=== PATIENT | male | born 1965 | race Caucasian/White ===

== ENCOUNTER 2022-12-05 08:38 | Emergency (ER) | payer MEDICAID ==
[~2022-12-05] VITALS: Ht 170.2 cm; Wt 95.3 kg
[2022-12-05] MEDS ORDERED: ACETAMINOPHEN ES 500 MG TABLET ONE (09:21)
[2022-12-05] MEDS: ACETAMINOPHEN ES 500 MG TABLET PO ONE (09:30)
[2022-12-05] MEDS: CYCLOBENZAPRINE 10 MG TABLET PO ONE (09:30)
[2022-12-05] MEDS ORDERED: CYCLOBENZAPRINE 10 MG TABLET ONE (09:31)
[2022-12-05] MEDS ORDERED: CYCL10TA9 PO (10:23)
[2022-12-05] MEDS ORDERED: ACET-73 PO (10:23)
[2022-12-05 10:36] VITALS: BP 132/65; TEMP 98.3; O2SAT 100
== END 2022-12-05 10:44 | disposition home or self-care (01) ==
LOC: ER 08:46
DX: M25.561 Pain in right knee (principal); M54.50 Low back pain, unspecified; V43.52XA Car driver injured in collision with other type car in traffic accident, initial encounter; Y93.89 Activity, other specified; Y92.89 Other specified places as the place of occurrence of the external cause; Y99.8 Other external cause status
CPT/HCPCS: 73502; 73564-TC; 73590-TC